=== PATIENT | male | born 1980 | race Caucasian/White ===

== ENCOUNTER 2018-02-22 09:40 | Emergency (ER) | payer SELFPAY ==
[~2018-02-22 09:40] MED LIST: Adacel (T-DAP) 0.5 ML VIAL ONE
--- NOTE | 2018-02-22 14:28 | RAD ---
4 VIEWS RIGHT ELBOW: Date: 02/22/18 HISTORY: Right elbow injury. FINDINGS: No fracture or dislocation is seen involving the right elbow. There is subcutaneous soft tissue swell ing seen involving the dorsal subcutaneous soft tissues of the proximal forearm. No radiopaque foreig n body is seen. IMPRESSION: Subcutaneous soft tissue swelling without evidence of an acute osseous abnormality. POS: [id number]
== END 2018-02-22 11:20 | disposition home or self-care (01) ==
LOC: MADERS 09:48
DX: S50.11XA Contusion of right forearm, initial encounter (principal); V86.99XA Unspecified occupant of other special all-terrain or other off-road motor vehicle injured in nontraffic accident, initial encounter
CPT/HCPCS: 90471; 90715

== ENCOUNTER 2022-03-08 06:43 | Emergency (ER) | payer SELFPAY | END 2022-03-08 07:20 | disposition home or self-care (01) | LOC: MADERS 06:43 | DX: J30.1 Allergic rhinitis due to pollen (principal) | CPT/HCPCS: 96372; 99283; J1040 ==

== ENCOUNTER 2022-03-08 19:59 | Emergency (ER) | payer OTHER, SELFPAY | END 2022-03-08 21:13 | LOC: MADERS 19:59 | DX: L23.7 Allergic contact dermatitis due to plants, except food (principal) | CPT/HCPCS: 99283 ==